=== PATIENT | male | born 1950 | race Caucasian/White ===

== ENCOUNTER 2017-11-27 14:00 | Inpatient (IN) | payer OTHER ==
[~2017-11-27] VITALS: Ht 170.2 cm; Wt 98.4 kg
[2017-11-28] MEDS ORDERED: LOTREL 10-20 M1 EACH PO (16:17)
[2017-11-28] MEDS ORDERED: ASA81 MG PO (16:18)
[2017-11-28] MEDS ORDERED: TERAZOSIN HCL2 M1 PO (16:18)
[2017-11-28] MEDS ORDERED: GABAPENTIN300 MG PO (16:18)
[2017-12-05] MEDS ORDERED: DOCUSATE SODIU100 MG PO (11:17)
[2017-12-05] MEDS ORDERED: GABAPENTIN800 MG PO (11:17)
[2017-12-05] MEDS ORDERED: PERCOCET 5-3251 EACH PO (11:18)
[2017-12-05] MEDS ORDERED: AMOX-CLAV 875-1 EACH PO (11:18)
[2017-12-05] MEDS ORDERED: CLONAZEPAM1 MG PO (11:18)
[2017-12-05] MEDS ORDERED: ENSURE ORIGINA237 ML PO (11:19)
== END 2017-12-05 14:03 | disposition home or self-care (01) | DRG 454 ==
LOC: PED 12-04 05:00 → O/R 12-04 05:00 → SURH 12-04 10:00 → PED 12-04 16:33
PROVIDERS: Orthopaedic Surgery Orthopaedic Surgery of the Spine
PROC: 0SG0071 Fusion of Lumbar Vertebral Joint with Autologous Tissue Substitute, Posterior Approach, Posterior Column, Open Approach (ICD-10-PCS; 2017-12-04)
PROC: 0ST20ZZ Resection of Lumbar Vertebral Disc, Open Approach (ICD-10-PCS; 2017-12-04)
PROC: 0SG00AJ Fusion of Lumbar Vertebral Joint with Interbody Fusion Device, Posterior Approach, Anterior Column, Open Approach (ICD-10-PCS; 2017-12-04)
PROC: 07DS3ZZ Extraction of Vertebral Bone Marrow, Percutaneous Approach (ICD-10-PCS; 2017-12-04)
PROC: 0SG00A0 Fusion of Lumbar Vertebral Joint with Interbody Fusion Device, Anterior Approach, Anterior Column, Open Approach (ICD-10-PCS; principal; 2017-12-04 10:00)
DX: M48.061 Spinal stenosis, lumbar region without neurogenic claudication (principal); M51.06 Intervertebral disc disorders with myelopathy, lumbar region; M43.16 Spondylolisthesis, lumbar region; I10 Essential (primary) hypertension